=== PATIENT | female | born 1960 | race Caucasian/White ===

== ENCOUNTER 2024-05-08 02:31 | Day surgery (SDC) | payer OTHER ==
[2024-05-08] VITALS (204 sets, daily range): BP systolic 74–203; BP diastolic 37–130
[~2024-05-08] VITALS: Ht 165.1 cm; Wt 57.5 kg
[~2024-05-08 02:31] MED LIST: SODIUM CHLORIDE 0.9% 1,000 ML IV PRN
--- NOTE | 2024-05-08 07:00 | NUR ---
Arrival & Pre-treatment Patient arrived to the ANR suite, identification and demographics confirmed. Patient to room 8, AAO, ambulatory, vitals obtained, ID/allergy/fall bands placed, changed into hospital gown, NAHUM hose, and non-slip socks. Procedure and timeline explained for treatment and discharge. All questions answered and the patient presents no concerns at this time.
[2024-05-08] MEDS ORDERED: SCOPOLAMINE 1.5 MG DIS TD PRN ×2 (07:30)
[2024-05-08] MEDS ORDERED: cloNIDine HCL 0.1 MG/TAB PO PRN ×2 (07:30)
[2024-05-08] MEDS ORDERED: LACTATED RINGER'S 1,000 ML IV PRN ×3 (07:30→09:55)
[2024-05-08] MEDS ORDERED: FAMOTIDINE 20 MG/TAB PO PRN ×2 (07:30)
[2024-05-08] MEDS ORDERED: diazePAM 5 MG/TAB PO PRN ×4 (07:30→08:30)
[2024-05-08] MEDS ORDERED: CYANOCOBALAMIN 500 MCG/TAB ( B12) PO PRN ×2 (07:30)
[2024-05-08] MEDS ORDERED: PANTOPRAZOLE SODIUM Sesquihydr 40 MG/TAB PO PRN ×2 (07:30)
[2024-05-08] MEDS ORDERED: ALBUTEROL SULFATE 2.5 MG VIAL IN PRN ×2 (07:30)
--- NOTE | 2024-05-08 07:45 | NUR ---
Dr. Kennedy telephoned with patient intake information including usage, dose, last dose/time taken and initial vital signs. Patient history and allergies reviewed with MD. Orders received for 10 + 5 PRN mg PO Valium and 0.3 mg PO Clonidine now. Will reassess per protocol in 1.5 hours and update MD with assessment and vitals. Patient medicated per MD orders. In addition to Clonidine and Valium, patient received 1000 mcg B12 PO, 20 mg Pepcid PO, and Scopolamine TD patch. Medication indication and education provided prior to administration. SN REVIEWED PATIENTS BELONGINGS. PATIENT ONLY HAS HER PRESCRIBED CHOLESTEROL, HTN AND DEPRESSION MEDICATION WITH HER. NO CONTRABAND IN HER PURSE. PATIENT REQUESTED TO LEAVE ON HER WEDDING RING AND NECKLACE. PATIENT INFORMED SN THAT SHE DOSE DRINK DAILY ONLY 1OR 2 DRINKS WITH DINNER. HOWEVER PATIENT STATES IT HAS BEEN NO ALCOHOL IN 2 WEEKS.
[2024-05-08] MEDS ORDERED: ASCORBIC ACID 4,000 MG in SODIUM CHLORIDE 0.9% 1,000 ML IV SCH (08:00)
[2024-05-08 08:35] LABS: BASO% 0.4 % (0-3); EOS% 1.5 % (0-8); HEMATOCRIT 42.2 % (37.0-47.0); HEMOGLOBIN 14.6 g/dl (12.0-16.0); IMMATURE GRANULOCYTES 0.1 % (0.0-5.0); LYMPH% 15.7 % (15-41); MEAN CELL VOLUME 89.8 fL CALC (80.0-100.0); MEAN CORPUSCULAR HGB 31.1 pG CALC (26.0-32.0); MEAN CORPUSCULAR HGB CONC 34.6 g/dL CAL (32.0-36.0); MONO% 3.8 % (2-13); NEUT# 5.94 thou/uL (2.00-7.15); NEUT% 78.5 % (42-76); RED BLOOD COUNT 4.7 mill/uL (4.20-5.60); RED CELL DISTRI WIDTH 11.7 % (11.5-15.5)
[2024-05-08 08:51] LABS: ALBUMIN 4.6 g/dL (3.2-5.0); BILIRUBIN, TOTAL 0.9 mg/dL (0.02-1.3); CREATININE 0.6 mg/dL (0.5-1.0); POTASSIUM 3.8 mmol/l (3.5-5.1); TOTAL PROTEIN 7.4 g/dL (6.3-8.2)
[2024-05-08] MEDS ORDERED: BUPROPION HCL150 MG PO (09:21)
[2024-05-08] MEDS ORDERED: ZETIA10 MG PO (09:21)
[2024-05-08] MEDS ORDERED: LISINOPRIL30 MG PO (09:22)
[2024-05-08] MEDS ORDERED: LIPITOR80 M1 PO (09:22)
[2024-05-08] MEDS ORDERED: DiphenhydrAMINE HCL 50 MG/ML SDV IV PRN (09:55)
[2024-05-08] MEDS ORDERED: MIDAZOLAM HCL 2 MG/2 ML VIAL IV PRN ×3 (09:55→15:15)
[2024-05-08] MEDS ORDERED: ROCURONIUM BROMIDE 10 MG/ML 5ML VIAL IV PRN (09:55)
[2024-05-08] MEDS ORDERED: PROPOFOL 100 ML IV PRN (09:55)
[2024-05-08] MEDS ORDERED: NALTREXONE HCL 50 MG/TAB VT PRN (09:55)
[2024-05-08] MEDS ORDERED: THIAMINE HCL 100 MG/ML 2ML VIAL IV PRN (09:55)
[2024-05-08] MEDS ORDERED: cloNIDine HYDROCHLORIDE 100 MCG/ML 10 ML INJ IV PRN (09:55)
[2024-05-08] MEDS ORDERED: OCTREOTIDE ACETATE 100 MCG/VIAL SDV SC PRN (09:55)
[2024-05-08] MEDS ORDERED: POTASSIUM CHLORIDE 20 MEQ/100 ML BAG IV PRN (09:55)
[2024-05-08] MEDS ORDERED: ONDANSETRON HCl 4 MG/2 ML SDV IV PRN ×3 (09:55→19:00)
[2024-05-08] MEDS ORDERED: STERILE WATER FOR IRRIGATION 1,000 ML BTL IR PRN (09:55)
[2024-05-08] MEDS ORDERED: LIDOCAINE HCL 1% (10MG/ML) 100 MG/10 ML MDV VT PRN ×2 (09:55)
[2024-05-08] MEDS ORDERED: PROPOFOL 10 MG/ML 100ML VIAL IV PRN (09:55)
[2024-05-08] MEDS ORDERED: LIDOCAINE HCL 1% (10MG/ML) 100 MG/10 ML MDV IV PRN (09:55)
[2024-05-08] MEDS ORDERED: SUCCINYLCHOLINE CHLORIDE 20 MG/ML 10ML VIAL IV PRN (09:55)
[2024-05-08] MEDS ORDERED: MAGNESIUM SULFATE HEPTAHYDRATE 100 ML IV PRN (09:55)
[2024-05-08] MEDS ORDERED: cloNIDine HCL 0.1 MG/TAB VT PRN (09:55)
[2024-05-08] MEDS ORDERED: diazePAM 5 MG/TAB VT PRN (09:55)
[2024-05-08] MEDS ORDERED: SODIUM CHLORIDE 0.9% 1,000 ML IV PRN ×2 (10:00→19:00)
--- NOTE | 2024-05-08 10:42 | NUR ---
Patient resting comfortably in bed. Easily aroused, maintains focus, and drifts back to sleep. No signs of active withdrawal or distress noted at this time. Continuous SPO2, rhythm, and respiratory monitoring initiated. IVF @ 250 mL/HR, room air, VSS.
--- NOTE | 2024-05-08 11:15 | NUR ---
MD at bedside with patient discussing treatment and answering any questions or concerns patient might have.
--- NOTE | 2024-05-08 11:32 | NUR ---
Induction Note Patient to ANR procedure room. Time out performed at 1132. Patient placed on monitors, Alexi hugger, bilateral wrist restraints applied for ET tube protection. Versed 5mg given IV push at 1142. Tourniquet applied to right arm Lidocaine 100mg given at 1143 IV push followed by Rocoronium 10mg at 1144 IV push and held for 90 seconds. Propofol bolus of 120mg given at 1146 IV push. Succinylcholine 80mg given IV push at 1147. Smooth intubation with 7.5 ETT. Positive CO2. Positive Auscultation for air exchange. Patient placed on ventilator for spontaneous ventilation. Placed on Propofol IV drip at 1148. OG inserted. Positive air on auscultation. Positive gastric content. Stomach washed at this time.
--- NOTE | 2024-05-08 12:15 | NUR ---
OG close note Stomach washed at this time. Naltrexone 50 mg with Clonidine 0 mg via OG tube. OG will be clamped for 45 minutes.
--- NOTE | 2024-05-08 13:00 | NUR ---
OG open note OG open at this time. Gastric content draining into drainage bag. OG to drain for 45 minutes. Propofol will be titrated down based on patient.
--- NOTE | 2024-05-08 13:45 | NUR ---
OG close note Stomach washed at this time. Naltrexone 50 mg with Clonidine 0 mg via OG tube. OG will be clamped for 45 minutes.
[2024-05-08] MEDS ORDERED: CLONIDINE0.1 MG PO (14:24)
[2024-05-08] MEDS ORDERED: KLONOPIN2 MG PO (14:24)
[2024-05-08] MEDS ORDERED: NALTREXONE50 MG PO (14:24)
--- NOTE | 2024-05-08 15:15 | NUR ---
OG close note Stomach washed at this time. Naltrexone 50 mg with Clonidine 0 mg via OG tube. OG will be clamped for 45 minutes.
--- NOTE | 2024-05-08 17:00 | NUR ---
OG close note Stomach washed at this time. Naltrexone 12.5 mg with Clonidine 0 mg via OG tube. OG will be clamped for 30 minutes.
--- NOTE | 2024-05-08 17:35 | NUR ---
Extubation note Closing medications given Benadryl 50mg IV push, Decadron 10mg IV push,Magnesium 4 grams IV, Zofran 8mg IV push, Octreotide 100mcg SC. Stomach washed out prior to extubation. Suctioned gastric content. OG removed. Patient extubated. Propofol Discontinued. Wrist restraints removed. Alexi hugger Removed. See ANR Moderate sedate recovery record for further notes and assessment.
--- NOTE | 2024-05-08 18:05 | NUR ---
TRANSER NOTE Patient transferred to medical-surgical unit. Report given to receiving nurse at bedside. Treatment, medications, I/O, IV access reviewed with RN. All questions answered. IVF to continue at 100 ml/hr, NC @ 2L, no adventitious breath sounds. Safety precautions in place, bed locked and in lowest position, call light in reach. PATIENTS SPOUSE CONTACTED WITH UPDATE.
[2024-05-08] MEDS ORDERED: ACETAMINOPHEN 1,000 MG/100 ML VIAL IV PRN (19:00)
[2024-05-08] MEDS ORDERED: ACETAMINOPHEN 500 MG TAB PO PRN (19:00)
[2024-05-08] MEDS ORDERED: HALOPERIDOL LACTATE 5 MG/ML SDV IV PRN (19:00)
[2024-05-08] MEDS ORDERED: PROMETHAZINE HCL 25 MG in SODIUM CHLORIDE 0.9% 50 ML IV PRN (19:00)
[2024-05-08] MEDS ORDERED: KETOROLAC TROMETHAMINE 30 MG/ML SDV IV PRN (19:00)
[2024-05-08] MEDS ORDERED: PROMETHAZINE HCL 12.5 MG in SODIUM CHLORIDE 0.9% 50 ML IV PRN (19:00)
--- NOTE | 2024-05-08 20:00 | NUR ---
RECEVIED REPORT FROM ANR NURSE. PT NOTED LAYING IN BED SUPINE, NC IN PLACE ON 2L O2. IV SITES APPEAR HEALTHY AND INTACT WITH IVF RUNNING PER EMAR. PT AROUSABLE TO SPEECH. PRESENTS A/OX3, ABLE TO FOLLOW COMMANDS AND MAKE NEEDS KNOWN. PT REQUEST TO USE BATHROOM. KEYBOARD INSTRUMENT REPAIRER AND ROUNDSMAN ASSISTED PT WITH USING BSC. PT VOIDED W/O DIFFICULTY, AND ASSISTED BACK INTO BED. PT DENIES ANY N/V/P BUT DOES C/O BEING COLD. WARM BLANKET WAS APPLIED AND BEAR HUGGER FOR COMFORT. PT EDUCATED ON NIGHTLY POC AND ENCOURAGED TO REST. VSS. NO S/S OF DISTRESS. BED ALARM ON AND SAFETY PRECAUTIONS IN PLACE. SITTER AT DOORWAY.
[2024-05-08] MEDS ORDERED: PATIENT' OWN MED CONTROLLED 1 EA DOSE IV PRN (21:00)
--- NOTE | 2024-05-08 22:21 | NUR ---
PT IS COMPLETELY AWAKE AT THIS TIME. PRESENTS VERY PLESEANT AND CALM. A/OX3. PT STATED "I FEEL GOOD" DENIES ANY N/V/P. PT DID REQUEST A SNACK, APPLE SAUCE AND DRINK PROVIDED. PT HAS BEEN ABLE TO AMBULATE TO BATHROOM WITH STAND BY ASSIST AND SETADY GAIT. FOLLOW COMMANDS AND KEEPS EYES OPEN. PT SITTING UP IN BED SEMI FOWELRS. CALL LIGHT WITHIN REACH AND SAFETY PRECAUTIONS IN PLACE. BED ALARM ON. NO S/S OF DISTRESS. SITTER AT DOORWAY.
[2024-05-08] MEDS ORDERED: clonazePAM 1 MG/TAB PO PRN (23:00)
[2024-05-08] MEDS ORDERED: cloNIDine HCL 0.1 MG/TAB PO SCH (23:00)
--- NOTE | 2024-05-09 | NUR ---
SCHEDULED MEDS ADMINISTERED PER EMAR, PT TOLERATED WELL. PT DENIES ANY N/V/P. PT IS LAYING IN BED SUPINE, RESTING COMFORTABLY. VSS. NO S/S OF DISTRESS. IVF RUNNING PER EMAR. CALL LIGHT WITHIN REACH, BED ALARM ON AND SAFETY PRECAUTIONS IN PLACE.
[2024-05-09 03:46] VITALS: BP 115/52
[2024-05-09] MEDS ORDERED: cloNIDine HCL 0.1 MG/TAB PO PRN (04:00)
[2024-05-09] MEDS ORDERED: NALTREXONE HCL 50 MG/TAB PO SCH (04:00)
[2024-05-09] MEDS ORDERED: clonazePAM 1 MG/TAB PO PRN ×2 (04:00→08:00)
--- NOTE | 2024-05-09 04:00 | NUR ---
SCHEDULED MEDS ADMINISTERED PER EMAR. PT TOLERATED WELL. DID AHVE TO WAKE PT UP TO TAKE MEDICATION, PT PRESENTS A/OX2 TO SELF AND PLACE BUT DROWSY. PT DID ASK "WHY AM I SO SLEEPY" INFOMRED PT OF MEDICATIONS GIVEN AND THAT REST IS ENCOURAGED POST PROCEDURE. PT REQUESTED TO USE BATHROOM, ROLL WRAPPER ASSISTED PT WITH USING BSC DUE TO DROWSINESS. VOIDED W/O DIFFICULTY AND ASSISTED BACK INTO BED. IVF RUNNING PER EMAR. VSS. NO S/S OF DISTRESS. CALL LIGHT WITHIN REACH AND SAFETY PRECAUTIONS IN PLACE. BED ALARM ON. SITTER AT DOORWAY.
[2024-05-09 05:12] LABS: BASO% 0.1 % (0-3); HEMATOCRIT 37.6 % (37.0-47.0); IMMATURE GRANULOCYTES 0.2 % (0.0-5.0); MEAN CELL VOLUME 93.3 fL CALC (80.0-100.0); MEAN CORPUSCULAR HGB 31.3 pG CALC (26.0-32.0); MEAN CORPUSCULAR HGB CONC 33.5 g/dL CAL (32.0-36.0); MONO% 1.7 % (2-13); NEUT# 7.33 thou/uL (2.00-7.15); RED BLOOD COUNT 4.03 mill/uL (4.20-5.60); RED CELL DISTRI WIDTH 11.7 % (11.5-15.5)
[2024-05-09 05:16] LABS: ALBUMIN 3.7 g/dL (3.2-5.0); BILIRUBIN, TOTAL 0.8 mg/dL (0.02-1.3); CREATININE 0.5 mg/dL (0.5-1.0); MAGNESIUM 2.2 mg/dL (1.6-2.3); POTASSIUM 4.2 mmol/l (3.5-5.1); TOTAL PROTEIN 6.2 g/dL (6.3-8.2)
[2024-05-09 05:23] LABS: HEMOGLOBIN 12.6 g/dl (12.0-16.0)
--- NOTE | 2024-05-09 07:52 | NUR ---
patient a/o x3; room air; no s/s of distress; patient sitting semi perez postion eating breakfast; iv site clean and intact running with NS @100; labs and patient status was called to provider; patient tolerating her breakfast; no complaints at this time; denied any pain; denied any n/v/d at this time; personal items in anr locker; patient personal glasses are within reach; call light within reach, verbalized understanding on how to use, verbal order for potassium 60 MEQ, awaiting pharmacy for verifications; no complaints
[2024-05-09] MEDS ORDERED: ACETAMINOPHEN 325 MG/TAB PO SCH (08:00)
[2024-05-09] MEDS ORDERED: cloNIDine HCL 0.1 MG/TAB PO SCH (08:00)
[2024-05-09] MEDS ORDERED: PANTOPRAZOLE SODIUM Sesquihydr 40 MG/TAB PO SCH (08:00)
[2024-05-09 08:19] VITALS: BP 111/68
[2024-05-09] MEDS ORDERED: Cholecalciferol 2,000 UNIT/TAB PO PRN (09:00)
[2024-05-09] MEDS ORDERED: MAGNESIUM OXIDE 400 MG/TAB PO PRN (09:00)
[2024-05-09] MEDS ORDERED: ACETAMINOPHEN 500 MG TAB PO PRN (09:00)
--- NOTE | 2024-05-09 12:33 | NUR ---
patient is a/o x3; sitting semi perez in bed eating lunch; denied any issues; denied any n/d/v at this time; no complaints; iv site clean and intact running with NS @100;personal clothes returned to patient; POC was talked about; no s/s of distress; call light within reach,verbalized understanding on how to use, bed in lowest postion;saftey meaures in place; bed alarm actiavted
== END 2024-05-09 15:29 | disposition home or self-care (01) | DRG 897 ==
LOC: ANR 02:31 → MS2 02:31 → ANR 07:00
PROVIDERS: ATTEND Anesthesiology
DX: F11.20 Opioid dependence, uncomplicated (principal)
CPT/HCPCS: J1100; J1200; J2354; J2405; J2704; J3475; J3480